=== PATIENT | female | born 1985 | race Caucasian/White ===

== ENCOUNTER 2022-08-22 18:31 | Inpatient (IN) ==
[2022-08-22] MEDS ORDERED: OXYTOCIN 30 UNITS/500 ML BAG IV PRN (18:47)
[2022-08-22] MEDS ORDERED: LIDOCAINE 1% LOCAL 20 ML VIAL INFIL PRN (18:47)
[2022-08-22] MEDS: LACTATED RINGER'S 1,000 ML IV PRN ×2 (19:03→20:18)
--- NOTE | 2022-08-22 19:05 | Anesthesiology Consultation ---
Date of Service August 22, 2022 Assessment & Plan Chart Review Chart Review: Acceptable Risk for Labor Epidural Consults Requested none ASA ASA2 Proposed Anesthesia Anesthesia Type: Labor Epidural Risk / Benefits Reviewed With: PT / POA / Parent / Guardian, Accepts Plan and Informed Consent Obtained History Height/Weight Height: 5 ft 9 in Weight: 68.492 kg Allergies Allergy/AdvReac Type Severity Reaction Status Date / Time Sulfa (Sulfonamide Allergy Intermediate Hives Verified 08/17/22 15:35 Antibiotics) Medications Home Medications Medication Instructions Recorded Confirmed Last Taken acetone (urine) test (Ketone Urine #50 ea 07/07/22 08/22/22 Unknown Test strips) blood sugar diagnostic (OneTouch #150 ea 07/07/22 08/22/22 Unknown Verio test strips) blood-glucose meter (OneTouch #1 ea 07/07/22 08/22/22 Unknown Verio Reflect Meter) lancets 33 gauge (OneTouch Delica #150 ea 07/07/22 08/22/22 Unknown Lancets) prenat.vits,dafne,wxp-jmsz-navsp 1 tab PO DAILY 08/22/22 08/22/22 08/20/22 NPO Date Last Intake of Fluids: 08/22/22 Time Last Intake of Fluids: 15:00 Date Last Intake of Solids: 08/22/22 Time Last Intake of Solids: 14:00 Past Medical History Medical History (Updated 08/22/22 @ 19:14 by Nikia Diaz DO) Gestational diabetes mellitus (GDM) affecting , antepartum History of chicken pox Supervision of elderly primigravida in first trimester (>=35 years old at time of delivery) Exercise / Class Metabolic Activity II 4-5 Yardwork/Stairs/Walk up hill Past Family History Family History Grandmother (Paternal) Breast cancer Grandfather (Maternal) Prostate cancer Mother Hypertension Denies family history of Ovarian cancer Colorectal cancer Past Surgical History Surgical History (Updated 08/22/22 @ 19:13 by Nikia Diaz DO) Hx laparoscopic cholecystectomy S/P wisdom tooth extraction Past Anesthesia History No Hx of Anesthesia Complications and No Family Hx of Anesthesia Complications History of PONV No Hx of PONV and No Hx of Motion Sickness Social History Smoking Status: Never smoker Hx Alcohol Use: No Hx Substance Use: No Physical Exam Vital Signs Last Vital Signs Pulse 91 H 08/22/22 18:43 BP 106/67 08/22/22 18:43 ENMT Mouth: no TMJ abnormality Thyromental Distance: > or= 3.5 Finger Breadths Mallampati Class: II Neck normal visual inspection and trachea midline; neck extension not limited Respiratory normal respiratory effort Auscultation: lungs clear to auscultation bilaterally Cardiovascular Rate/Rhythm: regular rate and regular rhythm Heart Sounds: no murmur Musculoskeletal Spine: normal cervical ROM Extremities: full ROM of extremities Neurologic moves all extremities Psychiatric Orientation: alert and oriented x 3 Testing Laboratory Results cbc pending
--- NOTE | 2022-08-22 19:09 | History & Physical Report ---
Date of Service August 22, 2022 Assessment & Plan (1) Gestational diabetes mellitus (GDM) affecting , antepartum: Plan: IUP at 40+ weeks in active labor check BSG bedside epidural analgesia when requested anticipate vaginal History of Present Illness Primary Care Provider: García Moncada Patient is a 37 yo EDC 08/20/22 who presents at 40 2/7 weeks with regular contractions since 1030 this morning. Now they are 2-3 minutes apart for several hours. (+) bloody show/(-)SPROM. GBS -negative. complicated by AMA and diet controlled GDM. growth scans have been AGA and monitoring has been reassuring. Allergies Allergy/AdvReac Type Severity Reaction Status Date / Time Sulfa (Sulfonamide Allergy Intermediate Hives Verified 08/17/22 15:35 Antibiotics) Home Medications Medication Instructions Recorded Confirmed Type omega-3 acid ethyl esters PO 11/27/20 08/17/22 History dimenhydrinate [Motion Sickness PO DAILY 02/02/22 08/17/22 History Relief] prenat.vits,dafne,hqu-hxje-wkbqd PO 02/02/22 08/17/22 History acetone (urine) test (Ketone Urine #50 ea 07/07/22 08/17/22 Rx Test strips) blood sugar diagnostic (OneTouch #150 ea 07/07/22 08/17/22 Rx Verio test strips) blood-glucose meter (OneTouch #1 ea 07/07/22 08/17/22 Rx Verio Reflect Meter) lancets 33 gauge (OneTouch Delica #150 ea 07/07/22 08/17/22 Rx Lancets) Patient History Medical History Cholecystectomy planned History of chicken pox Surgical History S/P wisdom tooth extraction Family History Grandmother (Paternal) Breast cancer Grandfather (Maternal) Prostate cancer Mother Hypertension Denies family history of Ovarian cancer Colorectal cancer Social History Smoking Status: Never smoker Second Hand Exposure: No; Hx Alcohol Use: No Hx Substance Use: No Preferred Language: Georgian Communication Ability: Effective Visual Impairment: No Limitations Hearing Ability: Normal Beliefs That Will Affect Care: None marital status: marital status details: Jay Jay Hernandez (33) [phone] Current Living Situation: Spouse Current Living Situation Comment: Lives with . 1 dog current occupational status: employed current occupation: Teacher Feels Safe at Home: Yes Review of Systems All systems reviewed & are unremarkable except as noted in HPI & below Physical Exam Constitutional: WD/WN, vitals as above Psychiatric: A+Ox3, euthymic affect Genitourinary: OB Exam Abdomen: + vertex, + estimated weight (7-8 pounds) and + regular contractions (Q2-3 minutes) Manual OB Exam: + cervical dilation 6 cm, + cervical effacement 100% and + station -1 OB Exam Monitor Tracing: + external uterine monitor used, + category I and + normal FHT variability Results & Data Vital Signs (Past 12 Hours) Vital Signs Pulse BP 08/22/22 18:43 91 H 106/67 Coding Level of Care Code None Diagnoses Gestational diabetes mellitus (GDM) affecting , antepartum O24.419
[2022-08-22] MEDS ORDERED: SODIUM CHLORIDE 0.9% PF INJ 10 ML VIAL ONE (19:19)
[2022-08-22] MEDS ORDERED: ePHEDrine sulfate 50 MG/ML AMP ONE (19:19)
[2022-08-22] MEDS ORDERED: fentaNYL citrate PF 100 MCG/2 ML VIAL ONE (19:19)
[2022-08-22] MEDS ORDERED: fentaNYL 2MCG/ML ROPIVACAINE 1.25MG/ML 100 ML BAG EPI ONE (19:20)
[2022-08-22] MEDS ORDERED: LIDOCAINE 2%/EPINEPHRINE 1:200,000 20 ML PF ONE (19:20)
[2022-08-22] MEDS ORDERED: BUPIVACAINE 0.25% PF 30 ML VIAL ONE (19:20)
[2022-08-22 19:25] LABS: Hematocrit (blood only) 37.7 % (37.0-47.0); Mean Corpuscular Hgb Conc 37.1 g/dL (32.0-36.0); Mean Corpuscular Volume 86.1 fL (80.0-100.0); Mean Platelet Volume 10.7 fL (9.4-12.4); Platelet Count 171 K/uL (130-400); RDW Standard Deviation 37.5 fL (36.4-46.3); Red Blood Count 4.38 M/uL (4.20-5.40); White Blood Count 10.12 K/ul (4.8-10.8)
[2022-08-22] MEDS ORDERED: NALOXONE HCL 0.4 MG/1 ML VIAL/CARP IV PRN (19:57)
[2022-08-22] MEDS ORDERED: NALBUPHINE HCL INJ 10 MG/ML AMP IV PRN (19:57)
[2022-08-22] MEDS ORDERED: ePHEDrine sulfate 50 MG/ML AMP IV PRN (19:57)
[2022-08-22] MEDS ORDERED: METOCLOPRAMIDE HCL 20 MG in SODIUM CHLORIDE 0.9% 50 ML IV PRN (19:57)
[2022-08-22] MEDS ORDERED: NALOXONE HCL 1 MG in SODIUM CHLORIDE 0.9% 1000ML 1,000 ML IV PRN (19:57)
[2022-08-22] MEDS ORDERED: diphenhydrAMINE 50 MG/ML VIAL IV PRN (19:57)
[2022-08-22] MEDS ORDERED: fentaNYL 2MCG/ML ROPIVACAINE 1.25MG/ML 100 ML BAG EPI PRN (19:57)
[2022-08-22] MEDS ORDERED: ONDANSETRON INJ 2 MG/ML 2 ML VIAL IV PRN (19:57)
[2022-08-23] MEDS ORDERED: HYDROCORTISONE ACETATE 25 MG SUPP PR PRN (00:48)
[2022-08-23] MEDS ORDERED: OXYTOCIN 30 UNITS/500 ML BAG IV PRN (00:48)
[2022-08-23] MEDS ORDERED: DIPHTHERIA/TETANUS/PERTUSSIS 0.5mL SYR/VIAL (Age 7+yrs) IM ONE (00:48)
--- NOTE | 2022-08-23 01:05 | Delivery Summary ---
Vaginal Delivery Summary Date of Service August 23, 2022 Vaginal Delivery Summary and 2nd Degree LAC Patient is a 37-year-old G1, P0 female who presents at 40-3/7 weeks in active labor. She received effective epidural analgesia. Membranes were ruptured for a copious amount of clear fluid. She progressed to full dilation and pushed effectively over intact perineum for delivery of a viable male infant. After the head was delivered the rest the infant delivered easily ON mother's abdomen for further attention and drying. He was vigorous and crying. After cord blood was obtained, the placenta was expressed intact with a three-vessel cord. bleeding was controlled with dilute Pitocin and fundal massage. A second-degree perineal laceration was repaired with 3-0 chromic in the usual fashion. Estimated blood loss was 400 cc. Mother and infant were doing well a fter delivery. [facility] [place] Vaginal Delivery Charge Delivery Type Details: and 2nd Degree LAC
[2022-08-23] MEDS: IBUPROFEN 600 MG TAB PO PRN ×5 (04:42→19:55)
[2022-08-23] MEDS: ACETAMINOPHEN 325 MG TAB PO PRN (05:53)
[2022-08-23] MEDS: BENZOCAINE 20% AER SPR 82.5 GM CAN EXT PRN (05:56)
[2022-08-23] MEDS: PRENATAL VITAMIN 1 TAB PO SCH (08:32)
[2022-08-23] MEDS: DOCUSATE SODIUM 100 MG CAP PO SCH ×2 (08:32→19:55)
--- NOTE | 2022-08-23 09:11 | Anesthesia Procedure Note ---
Date of Service August 23, 2022 Anesthesia Post Epidural Note Vital Signs Vital Signs: Temp Pulse Resp BP Pulse Ox O2 Del Method 37.0 C 85 16 103/65 98 Room Air 08/23/22 03:31 08/23/22 03:31 08/23/22 03:31 08/23/22 03:31 08/23/22 02:32 08/23/22 03:31 Notes Mental Status: alert / awake / arousable and participated in evaluation Nausea / Vomiting: adequately controlled Pain: adequately controlled Airway Patency, RR, SpO2: stable & adequate BP & HR: stable & adequate Hydration State: stable & adequate Neuraxial Anesthesia: was administered and sensory block is resolving Anesthetic Complications: no major complications apparent and Pt Satisfied with anesthetic care Epidural: Removed without complications and With tip intact
[2022-08-23] MEDS: oxyCODONE/ACETAMINOPHEN 5mg/325mg TAB PO PRN (18:31)
[2022-08-24] MEDS: oxyCODONE/ACETAMINOPHEN 5mg/325mg TAB PO PRN ×2 (00:03→21:17)
--- NOTE | 2022-08-24 06:18 | Obstetrical Progress Note ---
Date of Service <Jarred Zaman DO - Last Filed: 08/24/22 06:32> August 24, 2022 Assessment & Plan <Jarred Zaman DO - Last Filed: 08/24/22 06:32> (1) Spontaneous vaginal delivery: - Feels well today. Eating well, voiding well, ambulating well. Some SOB with standing and movement. Will continue to monitor. - Pain well controlled with ibuprofen 600mg Q4H PRN and Percocet Q4H PRN. - Routine care -- OOB, ambulation, diet progression as tolerated - After discharge will have 6 week follow-up with Dr. Laureano. Day #:: 1 <Estrella Shepard MD - Last Filed: 08/24/22 07:10> (1) Spontaneous vaginal delivery: Subjective <Jarred Zaman DO - Last Filed: 08/24/22 06:32> Ambulation: ambulating normally Voiding: no voiding problems (pressure with urination ) Passing Gas:: Yes Diet Tolerance:: regular diet Lochia:: Small Feeding Type:: bottle feeding Current Pain Level(1-10): 3 Review of Systems Denies fever, chills, sweats Denies chest pain, palpitations, chest pressure. Shortness of breath when standing Denies breast pain. Denies dysuria. Denies headache or changes in vision. Physical Exam <Jarred Zaman DO - Last Filed: 08/24/22 06:32> General: Alert, oriented. No acute distress. Cardiac: Regular rate and rhythm, no murmurs/rubs/gallops. Respiratory: Clear to auscultation bilaterally a/p, no wheezes/rales/rhonchi. No increased work of breathing. Symmetrical chest rise. No respiratory distress. Abdomen: Soft, nontender, nondistended. Bowel sounds present. Uterus: Uterine fundus firm, palpable 3 cm below umbilicus. Lower Extremities: No lower extremity edema or swelling. No deep calf pain. Corry's negative bilaterally. Results & Data <Jarred Zaman DO - Last Filed: 08/24/22 06:32> Vital Signs (Past 12 Hours) Vital Signs Temp Pulse Resp BP BP O2 Del Method 08/23/22 23:37 36.6 C 84 16 92/55 L Room Air 08/23/22 20:15 36.6 C 77 18 97/60 L <Estrella Shepard MD - Last Filed: 08/24/22 07:10> Co-Signing Physician Notes Resident Physician Supervision Note: I interviewed and examined the patient. Discussed with Dr. Zaman and agree with findings and plan as documented in the note. Any exceptions or clarifications are listed here: [ ] Documented By: Estrella Shepard MD, FACOG Resident Activity Tracking <Jarred Zaman DO - Last Filed: 08/24/22 06:32> Resident Involvement: Resident Care Provided Care Provided: OB Delivery
[2022-08-24 06:56] LABS: Hematocrit (blood only) 28.6 % (37.0-47.0); Hemoglobin 10.2 g/dl (12.0-16.0); Mean Corpuscular Hemoglobin 31.9 pg (25.0-34.0); Mean Corpuscular Hgb Conc 35.7 g/dL (32.0-36.0); Mean Corpuscular Volume 89.4 fL (80.0-100.0); Mean Platelet Volume 10.6 fL (9.4-12.4); Platelet Count 147 K/uL (130-400); RDW Coefficient of Variation 12.4 % (11.5-14.5); RDW Standard Deviation 40.5 fL (36.4-46.3); White Blood Count 10.67 K/ul (4.8-10.8)
[2022-08-24] MEDS: PRENATAL VITAMIN 1 TAB PO SCH (08:01)
[2022-08-24] MEDS: IBUPROFEN 600 MG TAB PO PRN ×4 (08:01→23:17)
[2022-08-24] MEDS: DOCUSATE SODIUM 100 MG CAP PO SCH ×2 (08:01→19:53)
[2022-08-24] MEDS: ACETAMINOPHEN 325 MG TAB PO PRN ×2 (13:52→19:53)
[2022-08-24] MEDS: BENZOCAINE 20% AER SPR 82.5 GM CAN EXT PRN (18:31)
[2022-08-24] MEDS ORDERED: bisacodyL 5 MG TABEC PO SCH (20:00)
[2022-08-25] MEDS ORDERED: bisacodyL 10 MG SUPP PR PRN (00:48)
[2022-08-25] MEDS: IBUPROFEN 600 MG TAB PO PRN ×2 (04:47→11:52)
[2022-08-25] MEDS: ACETAMINOPHEN 325 MG TAB PO PRN ×2 (06:17→13:23)
--- NOTE | 2022-08-25 06:50 | Obstetrical Progress Note ---
Date of Service <Jarred Zaman DO - Last Filed: 08/25/22 07:04> August 25, 2022 Assessment & Plan <Jarred Zaman DO - Last Filed: 08/25/22 07:04> (1) Spontaneous vaginal delivery: - Feels well today. Eating well, voiding well, ambulating well. Some SOB with standing and movement. Will continue to monitor. - Pain well controlled with ibuprofen 600mg Q4H PRN and Percocet Q4H PRN. - Routine care -- OOB, ambulation, diet progression as tolerated - After discharge will have 6 week follow-up with Dr. Laureano. - Will d/c today. Day #:: 2 <Umu Guan, DO - Last Filed: 08/25/22 07:50> (1) Spontaneous vaginal delivery: Subjective <Jarred Zaman DO - Last Filed: 08/25/22 07:04> Ambulation: ambulating normally Voiding: no voiding problems Passing Gas:: Yes Diet Tolerance:: regular diet Lochia:: Small Feeding Type:: bottle feeding Current Pain Level(1-10): 4 Review of Systems Denies fever, chills, sweats Denies shortness of breath, difficulty breathing, chest pain, palpitations, chest pressure. Denies breast pain. Denies dysuria. Denies headache or changes in vision. Physical Exam <Jarred Zaman DO - Last Filed: 08/25/22 07:04> General: Alert, oriented. No acute distress. Cardiac: Regular rate and rhythm, no murmurs/rubs/gallops. Respiratory: Clear to auscultation bilaterally a/p, no wheezes/rales/rhonchi. No increased work of breathing. Symmetrical chest rise. No respiratory distress. Abdomen: Soft, nontender, nondistended. Bowel sounds present. Uterus: Uterine fundus firm, palpable 3 cm below umbilicus. Lower Extremities: No lower extremity edema or swelling. No deep calf pain. Corry's negative bilaterally. Results & Data <Jarred Zaman DO - Last Filed: 08/25/22 07:04> Vital Signs (Past 12 Hours) Vital Signs Temp Pulse Resp BP Pulse Ox O2 Del Method 04/26/23 23:15 36.5 C 62 18 116/65 08/24/22 19:50 36.7 C 94 H 18 90/50 L 98 Room Air <Umu Guan DO - Last Filed: 08/25/22 07:50> Co-Signing Physician Notes Resident Physician Supervision Note: I interviewed and examined the patient. Discussed with Dr. Zaman and agree with findings and plan as documented in the note. Any exceptions or clarifications are listed here: PPD#2 doing well. No concerns. DC home, reviewed instructions. Documented By: Umu Guan DO Resident Activity Tracking <Jarred Zaman DO - Last Filed: 08/25/22 07:04> Resident Involvement: Resident Care Provided Care Provided: OB Delivery
[2022-08-25] MEDS: DOCUSATE SODIUM 100 MG CAP PO SCH (08:08)
[2022-08-25] MEDS: PRENATAL VITAMIN 1 TAB PO SCH (08:08)
[2022-08-25 08:31] LABS: Hematocrit (blood only) 29.4 % (37.0-47.0); Hemoglobin 10.2 g/dl (12.0-16.0)
== END 2022-08-25 15:27 | disposition home or self-care (01) | DRG 807 ==
LOC: OPB 18:31 → 4S1 18:32 → 4E2 08-23 03:21